=== PATIENT | female | born 1970 | race Two or more races ===

== ENCOUNTER 2017-10-09 11:37 | Emergency (ER) | payer BC, OTHER ==
[~2017-10-09] VITALS: Ht 167.6 cm; Wt 61.2 kg
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
[2017-10-09] MEDS ORDERED: MORPHINE SULFATE INJ 2 MG/ML DISP.SYRIN ONE (11:47)
[2017-10-09] MEDS ORDERED: ONDANSETRON 4 MG TAB.RAPDIS ONE (11:54)
--- NOTE | 2017-10-09 11:54 | NUR ---
BUS STEWARD AT BEDSIDE FOR BLOOD DRAW.
[2017-10-09 11:57] LABS: BASOPHILS % (AUTO) 0.3 % (0.0-2.0); EOSINOPHILS # (AUTO) 1.4 /CMM (0.0-0.7); HEMATOCRIT 41 % (33-45); HEMOGLOBIN 14.2 g/dL (11.5-14.8); LYMPHOCYTES # (AUTO) 2.7 /CMM (0.8-4.8); LYMPHOCYTES % (AUTO) 28.5 % (20.0-44.0); MEAN CORPUSCULAR HEMOGLOBIN 31 PG (26.0-33.0); MEAN CORPUSCULAR HGB CONC 34 g/dl (31.0-36.0); MEAN CORPUSCULAR VOLUME 90 fL (82-100); MONOCYTES # (AUTO) 0.7 /CMM (0.1-1.30); NEUTROPHILS # (AUTO) 4.7 /CMM (1.8-8.9); NEUTROPHILS % (AUTO) 49.2 % (43.0-81.0); PLATELET COUNT (AUTO) 284 /CMM (150-450); RDW COEFFICIENT OF VARIATION 11.8 (11.5-15.0); RED BLOOD CELL COUNT(AUTO) 4.57 MIL/uL (4.0-5.2); WHITE BLOOD COUNT (AUTO) 9.5 K/uL (4.3-11.0)
[2017-10-09] MEDS ORDERED: MORPHINE SULFATE INJ 2 MG/ML DISP.SYRIN IM ONE ×2 (12:00→15:00)
[2017-10-09] MEDS ORDERED: ONDANSETRON 4 MG TAB.RAPDIS SL ONE (12:00)
--- NOTE | 2017-10-09 12:12 | NUR ---
PT TO RADIOLOGY FOR ABDOMINAL CT AND XRAYS VIA [facility].
[2017-10-09 12:21] LABS: ALBUMIN 3.6 g/dL (3.4-5.0); BILIRUBIN,DIRECT 0.1 mg/dL (0.0-0.2); BILIRUBIN,TOTAL 0.5 mg/dL (0.2-1.0); CALCIUM, SERUM 9.2 mg/dL (8.5-10.1); CREATININE 0.8 mg/dL (0.6-1.3); POTASSIUM 3.7 mmol/L (3.5-5.1); TOTAL PROTEIN, SERUM 6.9 g/dL (6.4-8.2)
--- NOTE | 2017-10-09 15:09 | NUR ---
Patient discharged to home in stable condition. Written and verbal after care instructions given. Patient verbalizes understanding of instruction.
[2017-10-09 15:30] VITALS: BP 132/77
== END 2017-10-09 15:31 | disposition home or self-care (01) ==
LOC: ER 11:40
DX: R10.9 Unspecified abdominal pain (principal); M79.644 Pain in right finger(s); M54.5 Low back pain; G89.29 Other chronic pain; V49.40XA Driver injured in collision with unspecified motor vehicles in traffic accident, initial encounter; Y93.89 Activity, other specified; Y92.410 Unspecified street and highway as the place of occurrence of the external cause; Y99.8 Other external cause status
CPT/HCPCS: 36415; 72100; 73140; 73590; 74176; 80048; 80076; 85025; 96372; 99285; A4606; J2270; Q0162; Z7610